=== PATIENT | female | born 1950 | race Hispanic/Latino ===

== ENCOUNTER 2021-01-10 16:52 | Observation (INO) | payer MEDICARE, MEDICAID ==
[2021-01-10] VITALS (8 sets, daily range): BP systolic 105–137; BP diastolic 52–66
[~2021-01-10] VITALS: Ht 154.9 cm; Wt 71.0 kg
[~2021-01-10 16:52] MED LIST: ASPIRIN81 MG PO; HYDR PO; IRBESARTAN PO; LEVOTHYROXIN75 MCG PO; NORVASC5 M1 PO
--- NOTE | 2021-01-10 16:55 | NUR ---
TO ROOM FOR TRIAGE
[2021-01-10 17:34] LABS: HEMATOCRIT 39.7 % (37.0-47.0); IMMATURE GRANULOCYTES 0.3 % (0.0-5.0); MEAN CELL VOLUME 88.8 fL CALC (80.0-100.0); MEAN CORPUSCULAR HGB 31.3 pG CALC (26.0-32.0); MEAN CORPUSCULAR HGB CONC 35.3 g/dL CAL (32.0-36.0); NEUT# 8.54 thou/uL (2.00-7.15); RED BLOOD COUNT 4.47 mill/uL (4.20-5.60); RED CELL DISTRI WIDTH 11.8 % (11.5-15.5)
[2021-01-10 17:35] LABS: GFR > 60 ML/MIN (>=60 (CALC)); GFR FOR AFR.AMER. > 60 ML/MIN (>=60 (CALC))
--- NOTE | 2021-01-10 17:39 | NUR ---
TELE CALLED IN AT 1716, PROVIDER NOTIFIED MRI NEEDED, SENSATION IS ONLY ALTERED IN THE ARM DURING TELE INTERVIEW
[2021-01-10 17:50] LABS: ALBUMIN 4.1 g/dL (3.2-5.0); ALKALINE PHOSPHATASE 121 u/l (38-126); ANION GAP 11 (6-22 (CALC)); BILIRUBIN, TOTAL 0.5 mg/dL (0.0-1.4); BUN 22 mg/dL (8-23); BUN/CREATININE RATIO 27 (12-20 (CALC)); CARBON DIOXIDE 25 mmol/l (22-30); CHLORIDE 95 mmol/l (95-108); CREATININE 0.8 mg/dL (0.5-1.0); GFR > 60 ML/MIN (>=60 (CALC)); GFR FOR AFR.AMER. > 60 ML/MIN (>=60 (CALC)); POTASSIUM 4.3 mmol/l (3.5-5.1); PROTHROMBIN TIME 10.8 SECONDS (9.0-12.5); SGOT/AST 27 u/l (9-36); TOTAL PROTEIN 7.7 g/dL (6.3-8.2)
[2021-01-10 17:53] LABS: SODIUM 127 mmol/l (137-146)
--- NOTE | 2021-01-10 18:27 | NUR ---
WALKED TO THE BATHROOM STEADY GAIT, NO DIFFICULTY
--- NOTE | 2021-01-10 19:14 | NUR ---
RESTING IN ROOM APPEARS COMFORTABLE, DAUGHTER AT THE BEDSIDE
--- NOTE | 2021-01-10 19:58 | NUR ---
UPDATED REGARDING PLAN, AWAITING BED ASSIGNMENT, ALERT AND ORIENTED
--- NOTE | 2021-01-10 20:27 | NUR ---
Admission Note Report Given to: ICU ROOM 2 Transported by: X Wheelchair XY Stretcher Transported with: Y Nurse Transporter Y Patent IV O2 Y Motor Rebuilder Location: Y ICU MS2
--- NOTE | 2021-01-10 22:00 | NUR ---
PATIENT ASSESSMENT COMPLETE. NO DEFICEITS OBSERVED.
--- NOTE | 2021-01-10 23:25 | NUR ---
RECEIVED PATIENT TO THE FLOOR RM/2 VIA STRETCHER FROM THE ED IN STABLE CONDITION. ORIENTED TO ROOM AND CALL LIGHT SYSTEM. ADMISSION PAPERWORK COMPLETED. ASSESMENT COMPLETED. [facility] STROKE SCALE SCORE UPON ADMISSIONS IS 0. PATIENT NO LONGER HAS NUMBNESS TO THE RIGHT SIDE. RESPIRATIONS EASY ON ROOM AIR. ON MONITOR SINUS RHYTHM. DENIES PAIN. REPORTS HAVING A LOT OF GAS TODAY WITH ALOT OF FLATULENCE AND BELCHING. PATIENT EXPRESSED CONCERN THAT HER SYMPTOMS MAY BE A SIDE EFFECT OR CAUSED BY HER COVID-19 VACCINE THAT WAS COMPLETED 12/26/20. PATIENT IS NPO. PATIENT ONLY EXITS THE BED FROM THE SIDE WHERE THE DOOR IS. HE HAS A HARD TIME OR IS NOT CONFIDENT TO GET OUT OF THE BED ON THE OTHERSIDE EVER SINCE HER CRANIOTOMY SX 19 YEARS AGO. DAUGHTER REPORTS THAT SHE MAY BE SLOW TO RESPOND. REPORTED SHE HAD BEEN LIKE THAT SINCE THE SURGERY. ALSO RIGHT ANKLE HAS MILD NON-PITTING EDEMA ALSO FROM THE PAST SURGERY DESCRIBED ABOVE. IVF INITIATED WHEN ARRIVED TO THE FLOOR. VAD #20AC PATENT WITH DRESSING CLEAN DRY AND INTACT. SKIN INTACT. BED IN LOW POSITION, CALL LIGHT WITHIN REACH.
[2021-01-11] VITALS (17 sets, daily range): BP systolic 102–138; BP diastolic 37–61
--- NOTE | 2021-01-11 00:26 | NUR ---
PATIENT RESTING QUIETLY. NO CHANGES. VSS
--- NOTE | 2021-01-11 02:05 | NUR ---
PATIENT IN BED. HOP 30 DEGREES. NEGATIVE ASSESSMENT. NO CHANGES.
--- NOTE | 2021-01-11 04:13 | NUR ---
NEURO ASSESSMENT STILL NEGATIVE FOR CHANGES. CURRENTLY RESTING QUIETLY IN BED WITH HOB ELEVATED 30 DEGREES. 1150 CC OUT SO FAR THIS SHIFT FOR PALE YELLOW URINE. FALL PRECAUTIONS MAINTAINED. BED IN LOW POSITION. CALL LIGHT WITHIN REACH.
[2021-01-11 04:31] LABS: HEMATOCRIT 39.3 % (37.0-47.0); HEMOGLOBIN 13.7 g/dl (12.0-16.0); IMMATURE GRANULOCYTES 0.3 % (0.0-5.0); MEAN CELL VOLUME 89.3 fL CALC (80.0-100.0); MEAN CORPUSCULAR HGB 31.1 pG CALC (26.0-32.0); MEAN CORPUSCULAR HGB CONC 34.9 g/dL CAL (32.0-36.0); NEUT# 3.1 thou/uL (2.00-7.15); RED BLOOD COUNT 4.4 mill/uL (4.20-5.60); RED CELL DISTRI WIDTH 11.8 % (11.5-15.5)
[2021-01-11 04:51] LABS: ALBUMIN 3.4 g/dL (3.2-5.0); ALKALINE PHOSPHATASE 88 u/l (38-126); BUN 16 mg/dL (8-23); BUN/CREATININE RATIO 23 (12-20 (CALC)); CALCULATED LDLCHOLESTEROL 107 mg/dL (62-129 (CALC)); CARBON DIOXIDE 27 mmol/l (22-30); CHLORIDE 104 mmol/l (95-108); CHOLESTEROL HDL RATIO 3.3 (<4.4 (CALC)); CREATININE 0.7 mg/dL (0.5-1.0); GFR > 60 ML/MIN (>=60 (CALC)); GFR FOR AFR.AMER. > 60 ML/MIN (>=60 (CALC)); HDL CHOLESTEROL 55 mg/dL (>=40); POTASSIUM 4.3 mmol/l (3.5-5.1); SGOT/AST 23 u/l (9-36); TOTAL CHOLESTEROL 182 mg/dl (0-199); TOTAL PROTEIN 6.7 g/dL (6.3-8.2); TOTAL TRIGLYCERIDES 103 mg/dl (30-149); VLDL CHOLESTROL 21 mg/dl (1-41 (CALC))
[2021-01-11 04:55] LABS: ANION GAP 9 (6-22 (CALC)); BILIRUBIN, TOTAL 0.8 mg/dL (0.0-1.4); SODIUM 136 mmol/l (137-146)
[2021-01-11 05:17] LABS: TSH, 3RD GENERATION 0.37 uIU/mL (0.47 - 4.68)
--- NOTE | 2021-01-11 08:00 | NUR ---
PATIENT ASSESSED, VITALS ARE STABLE. SAFETY MEASURES IN PLACE. CALL LIGHT IN REACH. WILL CONTINUE TO MONITOR.
--- NOTE | 2021-01-11 09:17 | NUR ---
Patient is not appropriate for physical therapy intervention at this time
--- NOTE | 2021-01-11 10:00 | NUR ---
PATIENT IS RESTING IN BED.
--- NOTE | 2021-01-11 12:00 | NUR ---
PATIENT IS EATING LUNCH SITTING UP IN BED.
--- NOTE | 2021-01-11 13:40 | NUR ---
PATIENT IS DOWN AT MRI
--- NOTE | 2021-01-11 14:30 | NUR ---
PATIENT ARRIVED BACK ON UNIT FROM MRI.
[2021-01-11] MEDS ORDERED: AVAPRO150 MG PO (16:48)
--- NOTE | 2021-01-11 17:16 | NUR ---
PATIENT SIGNED OFF D/C PAPERWORK. EDUCATION WAS PROVIDED. PATIENT AND HER DAUGHTER STATED THAT THEY BOTH UNDERSTOOD.
--- NOTE | 2021-01-11 17:25 | NUR ---
PATIENT IS OFF THE UNIT WALKING WITH HER DAUGHTER. PATIENT REFUSED TO USE THE WHEELCHAIR STATED SHE "RATHER WALK". PATIENT LEFT STABLE AND SMILING.
== END 2021-01-11 17:25 | disposition home or self-care (01) ==
LOC: ED 16:52 → ED-I 18:45 → ED 19:34 → ICU 19:35
PROVIDERS: Family Medicine; Nurse Practitioner Family; ADMIT Internal Medicine; ATTEND Internal Medicine
DX: R51.9 Headache, unspecified (principal); H53.8 Other visual disturbances; R20.0 Anesthesia of skin; M79.601 Pain in right arm; R07.9 Chest pain, unspecified; E87.1 Hypo-osmolality and hyponatremia; I10 Essential (primary) hypertension; E03.9 Hypothyroidism, unspecified; Z20.822 Contact with and (suspected) exposure to COVID-19
CPT/HCPCS: A9579; J1650; Q9967